=== PATIENT | female | born 1990 | race Two or more races ===

== ENCOUNTER 2017-05-09 10:58 | Outpatient (CLI) | payer MEDICAID ==
[2017-05-09] MEDS ORDERED: NAPR-56 PO (11:46)
[2017-05-09 12:03] LABS: BASOPHILS % (AUTO) 0.5 % (0-1); EOSINOPHILS # (AUTO) 0.3 X10'3 (0-0.9); EOSINOPHILS % (AUTO) 3.6 % (0-6); LYMPHOCYTES # (AUTO) 1.7 X10'3 (1.1-4.8); LYMPHOCYTES % (AUTO) 22.5 % (21-51); MEAN CORPUSCULAR HEMOGLOBIN 26.7 PG (27.0-31.0); MEAN CORPUSCULAR VOLUME 80.8 FL (78-98); MEAN PLATELET VOLUME 8.8 FL (7.4-10.4); MONOCYTES # (AUTO) 0.4 X10'3 (0-0.9); MONOCYTES % (AUTO) 4.8 % (2-12); NEUTROPHILS # (AUTO) 5.3 X10'3 (1.8-7.7); NEUTROPHILS % (AUTO) 68.6 % (42-75); PRE OP HEMATOCRIT 38.2 % (35.0-45.0); PRE OP HEMOGLOBIN 12.6 g/dL (12.0-16.0); PRE OP PLATELET COUNT 310 X10'3 (140-440); RED BLOOD COUNT 4.72 X10'6 (4.20-5.60); RED CELL DISTRIBUTION WIDTH 15.9 % (11.5-14.5)
[2017-05-09 12:21] LABS: HCG SERUM QL POSITIVE
== END 2017-05-09 23:59 | disposition home or self-care (01) ==
LOC: PRE-OP 10:58 → EDSTATUS 05-11 07:30
PROVIDERS: ATTEND Obstetrics & Gynecology
DX: Z01.812 Encounter for preprocedural laboratory examination (principal)
CPT/HCPCS: 36415; 84703; 85025

== ENCOUNTER 2017-07-14 06:09 | Day surgery (SDC) | payer MEDICAID ==
[2017-07-12 11:31] LABS: BASOPHILS # (AUTO) 0.1 X10'3 (0-0.2); BASOPHILS % (AUTO) 0.8 % (0-1); EOSINOPHILS # (AUTO) 0.2 X10'3 (0-0.9); EOSINOPHILS % (AUTO) 2.7 % (0-6); LYMPHOCYTES # (AUTO) 1.7 X10'3 (1.1-4.8); MEAN CORPUSCULAR HEMOGLOBIN 26.9 PG (27.0-31.0); MEAN CORPUSCULAR HGB CONC 33.6 % (33.0-36.5); MEAN CORPUSCULAR VOLUME 80.1 FL (78-98); MEAN PLATELET VOLUME 9.3 FL (7.4-10.4); MONOCYTES # (AUTO) 0.3 X10'3 (0-0.9); MONOCYTES % (AUTO) 3.9 % (2-12); NEUTROPHILS # (AUTO) 5.8 X10'3 (1.8-7.7); NEUTROPHILS % (AUTO) 71.6 % (42-75); PRE OP HEMATOCRIT 41.2 % (35.0-45.0); PRE OP HEMOGLOBIN 13.8 g/dL (12.0-16.0); PRE OP PLATELET COUNT 263 X10'3 (140-440); RED BLOOD COUNT 5.14 X10'6 (4.20-5.60); RED CELL DISTRIBUTION WIDTH 15.1 % (11.5-14.5)
[2017-07-12 11:43] LABS: HCG SERUM QL NEGATIVE
[2017-07-12 11:44] LABS: ALBUMIN 3.8 G/DL (3.4-5.0); ALBUMIN/GLOBULIN RATIO 0.8 (1.1-1.5); ALKALINE PHOSPHATASE 103 IU/L (46-116); BLOOD UREA NITROGEN 11 MG/DL (7-18); BUN/CREATININE RATIO 14.7 (6.6-38.0); CALCIUM 9.5 MG/DL (8.5-10.1); CHLORIDE 104 MMOL/L (99-107); CREATININE 0.75 MG/DL (0.40-0.90); PRE OP ALT 56 U/L (30-65); PRE OP ANION GAP 10 (8-16); PRE OP AST 19 U/L (10-37); PRE OP BILIRUB, TOTAL 0.4 MG/DL (0.0-1.0); PRE OP GLUCOSE 112 MG/DL (70-104); PRE OP POTASSIUM 3.7 MMOL/L (3.4-5.1); PRE OP SODIUM 140 MMOL/L (135-145); TOTAL CARBON DIOXIDE 25.7 MMOL/L (24-32); TOTAL PROTEIN 8.6 G/DL (6.4-8.2); eGFR > 90 ML/MIN
[2017-07-14] VITALS (8 sets, daily range): BP systolic 113–126; BP diastolic 70–86
[~2017-07-14] VITALS: Ht 165.1 cm; Wt 84.1 kg
[~2017-07-14 06:09] MED LIST: NAPR-56 PO; cefazolin/dext.iso 2gm/50ml 50 ML IV ONE; famotidine 20mg tablet PO ONE; ringers solution, lacted 1,000 ML IV SCH
[2017-07-14] MEDS ORDERED: LIDOcaine 1% (10mg/ml) 2ml vial ONE (06:50)
[2017-07-14] MEDS ORDERED: BUPIVAcaine/PF 2.5 mg/ml (0.25%) 30ml vial ONE (08:19)
[2017-07-14] MEDS ORDERED: sevoflurane 250ml liquid IH ONE (08:28)
[2017-07-14] MEDS ORDERED: midazolam 2 mg/2 ml injection ONE (08:31)
[2017-07-14] MEDS ORDERED: fentaNYL/PF 50MCG/1 ML 2ML syringe ONE (08:31)
[2017-07-14] MEDS ORDERED: propofol inj 20 ML IV ONE (08:32)
[2017-07-14] MEDS ORDERED: rocuronium 10mg/ml inj IV ONE (08:33)
[2017-07-14] MEDS ORDERED: dexamethasone sod phosphate 4mg/ml inj. ONE (08:40)
[2017-07-14] MEDS ORDERED: ondansetron/PF 4mg/2ml inj ONE (08:48)
[2017-07-14] MEDS ORDERED: neostigmine methylsulfate 1 MG/ML 10ml vial ONE (08:48)
[2017-07-14] MEDS ORDERED: glycopyrrolate 0.2mg/ml inj ONE (08:49)
[2017-07-14] MEDS ORDERED: proCHLORperazine 10 MG/2 ml inj IV PRN (08:55)
[2017-07-14] MEDS ORDERED: ringers solution, lacted 1,000 ML IV SCH (08:55)
[2017-07-14] MEDS ORDERED: ondansetron/PF 4mg/2ml inj IV PRN (08:55)
[2017-07-14] MEDS ORDERED: morphine 4 MG/ML inj SYRINge IV PRN ×2 (08:55)
[2017-07-14] MEDS ORDERED: meperidine/PF 50mg/ml syringe IV PRN ×3 (08:55)
== END 2017-07-17 10:13 | disposition home or self-care (01) ==
LOC: PAS 06:09
PROVIDERS: ATTEND Obstetrics & Gynecology
DX: Z30.2 Encounter for sterilization (principal); N85.2 Hypertrophy of uterus; N83.202 Unspecified ovarian cyst, left side; N83.201 Unspecified ovarian cyst, right side; N83.8 Other noninflammatory disorders of ovary, fallopian tube and broad ligament; E66.9 Obesity, unspecified; Z98.890 Other specified postprocedural states; Z87.891 Personal history of nicotine dependence; Z68.30 Body mass index [BMI] 30.0-30.9, adult; Z79.899 Other long term (current) drug therapy
CPT/HCPCS: 36415; 58670; 80053; 84703; 85025; A6258; A6402; J0690; J1100; J2250; J2405; J2704; J2710; J3010; J3490; J7120